=== PATIENT | female | born 1970 | race Caucasian/White ===

== ENCOUNTER 2016-06-05 13:16 | Day surgery (SDC) | payer BC, OTHER ==
[~2016-06-05] VITALS: Ht 154.9 cm; Wt 101.5 kg
[2016-06-05] MEDS ORDERED: SODIUM CHLORIDE 0.9% 1,000 ML IV ONE (14:58)
[2016-06-05] MEDS ORDERED: SODIUM CHLORIDE 0.9% 1,000ML IVBOLUS ONE (15:00)
[2016-06-05] MEDS ORDERED: ONDANSETRON 2MG/ML, 2ML IVPush ONE (15:00)
[2016-06-05] MEDS ORDERED: SODIUM CHLORIDE FLUSH 10ML SYR IVF ONE (15:00)
[2016-06-05] MEDS ORDERED: HYDROmorphone 1 MG/ML, 1ML IVPush PRN (15:00)
[2016-06-05 15:13] LABS: HEMOGLOBIN 14.8 g/dL (11.7-16.4)
[2016-06-05] MEDS ORDERED: ONDANSETRON 2MG/ML, 2ML ONE ×2 (15:17→18:48)
[2016-06-05] MEDS ORDERED: HYDROmorphone 1 MG/ML, 1ML ONE (15:17)
[2016-06-05 15:25] LABS: ASPARTATE AMINO TRANSFERASE 17 U/L (15-37); BLOOD UREA NITROGEN 19 mg/dL (7-18)
[2016-06-05] MEDS ORDERED: CEFOTETAN PMX 1GM/50ML 50 ML ONE (16:23)
[2016-06-05] MEDS ORDERED: CEFOTETAN PMX 1GM/50ML 50 ML IV ONE (16:30)
[2016-06-05] MEDS ORDERED: hydrALAzine 20 MG/ML, 1ML IV PRN (17:30)
[2016-06-05] MEDS ORDERED: ACETAMINOPHEN 325 MG TABLET PO PRN (17:30)
[2016-06-05] MEDS ORDERED: LABETALOL 5MG/ML, 20ML IV PRN (17:30)
[2016-06-05] MEDS ORDERED: HYDROmorphone 1 MG/ML, 1ML IV PRN (17:30)
[2016-06-05] MEDS ORDERED: PROMETHAZINE 25 MG/ML, 1ML IV PRN (17:30)
[2016-06-05] MEDS ORDERED: OXYcodone 5 MG/5 ML ORAL.SOL UDC PO PRN (17:30)
[2016-06-05] MEDS ORDERED: MIDAZOLAM 1 MG/ML, 2ML IV PRN (17:30)
[2016-06-05] MEDS ORDERED: MEPERIDINE/PF 25MG/0.5ML IVPush PRN (17:30)
[2016-06-05] MEDS ORDERED: ONDANSETRON 2MG/ML, 2ML IVPush PRN ×2 (17:30→21:00)
[2016-06-05] MEDS ORDERED: ALBUTEROL/IPRATROPIUM 2.5MG/0.5MG, 3 ML NPPB PRN (17:30)
[2016-06-05 17:45] VITALS: BP 112/80
[2016-06-05] MEDS ORDERED: FENTANYL PF 250 MCG/5ML ONE (18:01)
[2016-06-05] MEDS ORDERED: MIDAZOLAM 1 MG/ML, 2ML ONE (18:01)
[2016-06-05] MEDS ORDERED: GLYCOPYRROLATE 0.2MG/1ML ONE (18:48)
[2016-06-05] MEDS ORDERED: NEOSTIGMINE 1 MG/ML, 10ML ONE (18:48)
[2016-06-05] MEDS ORDERED: ROCURONIUM 10 MG/ML ONE (18:48)
[2016-06-05] MEDS ORDERED: DEXAMETHASONE 4 MG/ML, 5ML ONE (18:48)
[2016-06-05] MEDS ORDERED: SUCCINYLCHOLINE 20 MG/ML, 10ML ONE (18:48)
[2016-06-05] MEDS ORDERED: PROPOFOL 10 MG/ML, 20ML ONE (18:48)
[2016-06-05] MEDS ORDERED: BUPIVACAINE/PF-EPI 0.25% 1:200K INFIL ONE (19:07)
[2016-06-05] MEDS ORDERED: OXYcodone 5 MG/5 ML ORAL.SOL UDC ONE (19:41)
[2016-06-05] MEDS ORDERED: FENTANYL PF 100 MCG/2ML ONE (19:52)
[2016-06-05] MEDS: FENTANYL PF 100 MCG/2ML IV PRN ×2 (19:53→20:06)
[2016-06-05] MEDS ORDERED: LACTATED RINGERS 1,000 ML IV SCH (21:00)
[2016-06-05] MEDS ORDERED: HYDROcodone/APAP 5/325 TABLET PO PRN (21:00)
[2016-06-05] MEDS ORDERED: OXYcodone/APAP 5/325MG TABLET PO PRN (21:00)
[2016-06-05] MEDS ORDERED: MORPHINE SULFATE 4 MG/ML, 1ML IVPush PRN (21:00)
[2016-06-05] MEDS ORDERED: OXYC-302 PO (21:19)
[2016-06-05] MEDS ORDERED: ONDA4TAB7 PO (21:20)
[2016-06-05] MEDS ORDERED: CEPH-368 PO (21:20)
== END 2016-06-05 23:15 | disposition home or self-care (01) ==
LOC: ED 16:18 → UNDOADMIN 16:42 → EDIP 16:42 → 4NOR 17:29 → EDIP 17:29 → OUT 19:00 → UNDODISIN 23:15
PROVIDERS: ATTEND Surgery
DX: K81.1 Chronic cholecystitis (principal); K75.9 Inflammatory liver disease, unspecified; K76.0 Fatty (change of) liver, not elsewhere classified; E66.9 Obesity, unspecified; Z68.41 Body mass index [BMI] 40.0-44.9, adult; Z82.49 Family history of ischemic heart disease and other diseases of the circulatory system; Z90.710 Acquired absence of both cervix and uterus
CPT/HCPCS: 36415; 47562; 76700; 80053; 81001; 83690; 84703; 85025; 88304; 93005; 96361; 96365; 96375; 99285; C1760; J0330; J1100; J1170; J2250; J2405; J2704; J2710; J3010; J7030; S0074; J3490

== ENCOUNTER → 2016-09-07 | Outpatient (CLI) | payer BC ==
[~2016-09-07] MED LIST: CEPH-368 PO; DOXY25TA PO; ONDA4TAB7 PO; OXYC-302 PO
== END ==
LOC: STAR 12:09
PROVIDERS: ATTEND Surgery
DX: Z02.9 Encounter for administrative examinations, unspecified (principal)

== ENCOUNTER 2016-09-15 05:35 | Day surgery (SDC) | payer BC ==
[~2016-09-15] VITALS: Ht 154.9 cm; Wt 100.5 kg
[2016-09-15] MEDS ORDERED: LACTATED RINGERS 1,000 ML IV SCH (06:38)
[2016-09-15 06:39] VITALS: BP 113/79
[2016-09-15] MEDS ORDERED: MIDAZOLAM 1 MG/ML, 2ML ONE (06:42)
[2016-09-15] MEDS ORDERED: FENTANYL PF 250 MCG/5ML ONE (06:42)
[2016-09-15] MEDS ORDERED: BUPIVACAINE/PF-EPI 0.5% 1:200K ONE (06:50)
[2016-09-15] MEDS ORDERED: ONDANSETRON 2MG/ML, 2ML IVPush PRN (07:00)
[2016-09-15] MEDS ORDERED: FENTANYL PF 100 MCG/2ML IV PRN (07:00)
[2016-09-15] MEDS ORDERED: METOCLOPRAMIDE 5 MG/ML, 2ML IV PRN (07:00)
[2016-09-15] MEDS ORDERED: OXYcodone 5 MG/5 ML ORAL.SOL UDC PO PRN (07:00)
[2016-09-15] MEDS ORDERED: PROMETHAZINE 25 MG/ML, 1ML IV PRN (07:00)
[2016-09-15] MEDS ORDERED: MEPERIDINE/PF 25MG/0.5ML IVPush PRN (07:00)
[2016-09-15] MEDS ORDERED: ACETAMINOPHEN 325 MG TABLET PO PRN (07:00)
[2016-09-15] MEDS ORDERED: HYDROmorphone 1 MG/ML, 1ML IV PRN (07:00)
[2016-09-15 07:16] LABS: HCG UR OBC PASS
[2016-09-15] MEDS ORDERED: CEFAZOLIN 1,000 MG ONE (07:24)
[2016-09-15] MEDS ORDERED: PROPOFOL 10 MG/ML, 20ML ONE (07:24)
[2016-09-15] MEDS ORDERED: DEXAMETHASONE 4 MG/ML, 1ML ONE (07:24)
[2016-09-15] MEDS ORDERED: ONDANSETRON 2MG/ML, 2ML ONE (07:24)
== END 2016-09-15 09:50 ==
LOC: OUT 05:35
PROVIDERS: ATTEND Surgery
DX: L72.0 Epidermal cyst (principal); Z80.3 Family history of malignant neoplasm of breast; Z82.49 Family history of ischemic heart disease and other diseases of the circulatory system; Z72.89 Other problems related to lifestyle; Z87.891 Personal history of nicotine dependence; Z90.49 Acquired absence of other specified parts of digestive tract; Z98.890 Other specified postprocedural states
CPT/HCPCS: 11406; 12032; 81025; 88304; J0690; J1100; J2250; J2405; J2704; J3010; J7120

== ENCOUNTER 2017-02-03 06:26 | Emergency (ER) | payer BC ==
[~2017-02-03] VITALS: Ht 154.9 cm; Wt 101.0 kg
[~2017-02-03 06:26] MED LIST changes: -DOXY25TA PO; +DOXY25TA45 PO
[2017-02-03] MEDS ORDERED: DEXAMETHASONE 4 MG/ML, 1ML PO ONE (07:00)
[2017-02-03] MEDS ORDERED: BICILLIN-LA 1,200,000 UNITS/2 ML IM ONE (07:00)
[2017-02-03] MEDS ORDERED: ACETAMINOPHEN 500 MG TABLET PO ONE (07:00)
[2017-02-03] MEDS ORDERED: ACETAMINOPHEN 500 MG TABLET ONE (07:23)
[2017-02-03] MEDS ORDERED: DEXAMETHASONE 4 MG/ML, 1ML ONE (07:24)
[2017-02-03 08:19] VITALS: BP 124/74
== END 2017-02-03 08:21 | disposition home or self-care (01) ==
LOC: ED 08:00
DX: J02.0 Streptococcal pharyngitis (principal); Z87.891 Personal history of nicotine dependence
CPT/HCPCS: 96372; 99283; J0561; J1100